=== PATIENT | male | born 1960 | race Caucasian/White ===

== ENCOUNTER 2016-12-04 22:26 | Emergency (ER) | payer BC ==
[~2016-12-04] VITALS: Ht 177.8 cm; Wt 117.9 kg
--- NOTE | ~2016-12-04 | CR72 ---
[facility]. [facility] A Service of [facility] & [facility] RADIOLOGY TEXT RESULTS PATIENT: RIVAS ELLIS LOCATION: SED : 58 UNIT #: [id number] AGE: [address]: Dom Townsend MD SEX: M ORDER DR: [id number] [place] [id number] MR#: [id number] Acc #: [id number] NAME: RIVAS ELLIS : 1960 SEX: M STUDY DATE/TIME: 12/04/2016 23:17 UNIT: SED ROOM: STUDY DESCRIPTION: CR Chest Single View Portable Attending Physician: Dom Townsend M.D. Ordering Physician: Dom Townsend M.D. Primary Care Physician: Leroy Castelan M.D. MEDICAL IMAGING REPORT This report is preliminary unless electronic signature is present. EXAM AP portable chest, 12/04/2016. HISTORY Heart racing with palpitations for a couple of hours since 1999 today. COMPARISON PA and lateral chest radiograph 10/06/2015. FINDINGS Study is attenuated by body habitus. No definite acute airspace disease is identified. The left base is partially obscured by the patient's body habitus. No pleural effusion. No pneumothorax. IMPRESSION Left lung base is partially obscured by the patient's body habitus. No acute airspace disease or acute chest findings are identified. Dictated by... Kaitlyn Mcnulty M.D. THIS IS AN ELECTRONICALLY VERIFIED REPORT Kaitlyn Mcnulty M.D. at 12/05/2016 9:42 PM [place] TD: 12/05/2016 16:02 JOB #: [id number] MEDICAL IMAGING REPORT Page 1 of 1
--- NOTE | ~2016-12-04 | EKG ---
PATIENT: RIVAS ELLIS UNIT #: [id number] Ventricular Rate: 130 BPM Atrial Rate: 87 BPM QRS Duration: 74 ms Q-T Interval: 296 ms QTC Calculation(Bezet): 435 ms Calculated R [place]: 47 degrees Calculated T [place]: 38 degrees Diagnosis Line: Atrial fibrillation with rapid ventricular Diagnosis Line: response with premature ventricular or aberrantly Diagnosis Line: conducted complexes Diagnosis Line: Abnormal ECG Diagnosis Line: No previous ECGs available Diagnosis Line: Confirmed by DANA MONTAGUE MD ([id number]) on Diagnosis Line: 12/07/2016 3:24:06 PM INTERPRETING MD: CLARI ALICEA
[~2016-12-04 22:26] MED LIST: ADULT TUSS100 MG/5 M PO; AMOXICILLIN875 MG PO; MOTRIN600 M1 PO; ZITHROMAX PO; ZOFRAN ODT4 MG PO
[2016-12-04 22:57] LABS: BASOPHIL# 0.1 X10e3 (0-0.3); EOSINOPHIL# 0.2 X10e3 (0-0.7); EOSINOPHIL% 1.4 % (0.0-7.0); HEMATOCRIT 43.3 % (38.0-50.0); HEMOGLOBIN 14.3 gm/dL (13.0-16.0); LYMPHOCYTE# 4.6 X10e3 (1.0-3.5); LYMPHOCYTE% 35.6 % (17.0-45.0); MEAN CELL VOLUME 79.4 FL (83-96); MEAN CORPUSCULAR HEMOGLOBIN 26.1 PG (28-34); MEAN CORPUSCULAR HGB CONC 32.9 g/dL (30-36); MONOCYTE% 7.9 % (3.0-12.0); NEUTROPHIL# 7.1 X10e3 (1.5-7.1); NEUTROPHIL% 54.1 % (40-75); PLATELET COUNT 317 X10e3 (140-420); RED BLOOD COUNT 5.46 X10e (3.90-5.60); RED CELL DISTRIBUTION WIDTH 15.5 % (11.0-15.5)
[2016-12-04 22:58] LABS: DIFF IND NO
[2016-12-04 22:59] LABS: PROTHROMBIN TIME (PATIENT) 11.8 SECONDS (9.5-12.4)
[2016-12-04 23:06] LABS: POC - CKMB <1.0 ng/mL (0.0-7.9); POC - TROPONIN <0.05 ng/mL (<=0.05)
[2016-12-04 23:06] LABS: PARTIAL THROMBOPLASTIN TIME 29.4 SECONDS (25.6-38.1)
[2016-12-04 23:08] LABS: ALBUMIN SERUM 4.2 g/dL (3.5-5.0); ALKALINE PHOSPHATASE 87 U/L (32-92); ALT (SGPT) 20 U/L (10-40); AST (SGOT) 18 U/L (10-42); BILIRUBIN,TOTAL 0.3 mg/dL (0.2-2.0); BLOOD UREA NITROGEN 17 mg/dL (9-23); BUN/CREATININE RATIO 15.45; CALCIUM SERUM 9.2 mg/dL (8.4-10.2); CARBON DIOXIDE 26 mmol/L (22-31); CHLORIDE 103 mmol/L (100-111); CREATININE SERUM 1.1 mg/dL (0.6-1.4); GLOM FILT RATE Estimated 74.1 mL/min (>60); GLUCOSE FASTING 126 mg/dL (70-110); POTASSIUM 3.8 mmol/L (3.5-5.1); PROTEIN TOTAL SERUM 7.8 g/dL (6.0-8.3); SODIUM 139 mmol/L (135-145)
[2016-12-04 23:09] LABS: BILIRUBIN, DIRECT <0.1 mg/dL (0.0-0.2); BILIRUBIN,INDIRECT 0.2 mg/dL (0.0-0.9)
== END 2016-12-05 03:01 ==
LOC: SED 22:26
PROVIDERS: Emergency Medicine
DX: I48.91 Unspecified atrial fibrillation (principal); Z90.49 Acquired absence of other specified parts of digestive tract
CPT/HCPCS: 36415; 71010; 80048; 80076; 82553; 83880; 84443; 84484; 85025; 85610; 85730; 93005; 96365; 96366; 96372; 96376; 99285; J1650